=== PATIENT | male | born 1970 | race Caucasian/White ===

== ENCOUNTER 2021-07-16 13:17 | Emergency (ER) | payer OTHER ==
[~2021-07-16] VITALS: Ht 190.5 cm; Wt 122.5 kg
[2021-07-16] MEDS ORDERED: ELIQUIS5 M2 PO (14:33)
[2021-07-16] MEDS ORDERED: CARV25 PO (14:34)
[2021-07-16] MEDS ORDERED: LISI20 PO (14:34)
[2021-07-16] MEDS ORDERED: SPIR25 PO (14:35)
[2021-07-16] MEDS ORDERED: GABA800 PO (14:35)
[2021-07-16] MEDS ORDERED: Norco 10-325 T1 EACH PO (14:35)
[2021-07-16] MEDS ORDERED: AMLO10 PO (14:35)
[2021-07-16] MEDS ORDERED: CYCL10 PO (14:36)
[2021-07-16] MEDS ORDERED: TRAM50 PO (14:36)
[2021-07-16 14:44] LABS: BASOPHILS ABSOLUTE AUTO 0.04 K/mm3 (0.00-0.23); BASOPHILS PERCENT AUTO 1 % (0-2); EOSINOPHILS ABSOLUTE AUTO 0.05 K/mm3 (0.00-0.68); EOSINOPHILS PERCENT AUTO 1 % (0-6); Hematocrit 49.7 % (37.0-53.0); Hemoglobin 17.3 g/dL (13.5-17.5); IMMATURE GRAN ABSOLUTE AUTO 0.02 K/mm3 (0.00-0.10); IMMATURE GRAN PERCENT AUTO 0 % (0-1); LYMPHOCYTES ABSOLUTE AUTO 2.29 K/mm3 (0.84-5.20); LYMPHOCYTES PERCENT AUTO 31 % (21-46); MONOCYTES ABSOLUTE AUTO 0.76 K/mm3 (0.16-1.47); MONOCYTES PERCENT AUTO 10 % (4-13); Mean Corpuscular HGB 29.4 pg (26.0-34.0); Mean Corpuscular HGB Conc 34.8 g/dL (31.5-36.5); Mean Corpuscular Volume 85 fL (80-100); Mean Platelet Volume 11.7 fL (9.1-12.4); NEUTROPHILS ABSOLUTE AUTO 4.18 K/mm3 (1.96-9.15); NEUTROPHILS PERCENT AUTO 57 % (41-73); Platelet Count 272 K/mm3 (150-400); RDW Coefficient Variation 12.5 % (11.7-14.2); RDW Standard Deviation 38.7 fL (35.1-46.3); Red Blood Cell Count 5.88 M/mm3 (4.30-5.90); White Blood Cell Count 7.34 K/mm3 (4.00-11.30)
[2021-07-16 15:08] LABS: Alanine Aminotransfer (ALT/SGP 31 U/L (12-78); Albumin, Blood 4.2 g/dL (3.4-5.0); Albumin/Globulin Ratio 1.1 (0.8-1.8); Alk Phos 52 U/L (50-136); Anion Gap 9 mmol/L (6-16); Aspartate Aminotrans (AST/SGOT 22 U/L (12-37); Bilirubin, Total 1.4 mg/dL (0.1-1.0); Blood Urea Nitrogen 16 mg/dL (8-24); CO2, Blood 21 mmol/L (21-32); Calcium, Blood 9.4 mg/dL (8.5-10.1); Chloride, Blood 104 mmol/L (98-108); Creatinine, Blood 0.94 mg/dL (0.60-1.20); Globulin, Blood 3.9 g/dL (2.2-4.0); Glomerular Filtration Rate >60 (60-); Glucose, Blood 126 mg/dL (70-99); Potassium, Blood 4.6 mmol/L (3.5-5.5); Sodium, Blood 134 mmol/L (136-145); Total Protein, Blood 8.1 g/dL (6.4-8.2)
[2021-07-16] MEDS ORDERED: OXYC10TA19 PO (17:10)
[2021-07-16] MEDS ORDERED: HYDROCODONE-AC1 EAC7 PO (17:10)
== END 2021-07-16 17:55 | disposition home or self-care (01) ==
LOC: ER 13:17
PROVIDERS: Emergency Medicine; Physician Assistant
DX: I48.91 Unspecified atrial fibrillation (principal); R10.11 Right upper quadrant pain; I50.9 Heart failure, unspecified; Z79.899 Other long term (current) drug therapy
CPT/HCPCS: 36415; 71045; 80053; 83690; 83735; 84484; 85025; 93005; 93010; 96365; 96366; 96375; 96376; 99285-25; J1170; J2405

== ENCOUNTER 2021-07-29 09:06 | Day surgery (SDC) | payer OTHER ==
[~2021-07-29] VITALS: Ht 190.5 cm; Wt 120.3 kg
[~2021-07-29 09:06] MED LIST: AMLO10 PO; CARV25 PO; CYCL10 PO; ELIQUIS5 M2 PO; GABA800 PO; HYDROCODONE-AC1 EAC7 PO; LISI20 PO; Norco 10-325 T1 EACH PO; OXYC10TA19 PO; SPIR25 PO; TRAM50 PO
== END 2021-07-29 11:18 | disposition home or self-care (01) ==
LOC: ORSCSDS 09:06 → ORD 08-19 13:15
PROVIDERS: Student in an Organized Health Care Education/Training Program
PROC: 0DBE8ZX Excision of Large Intestine, Via Natural or Artificial Opening Endoscopic, Diagnostic (ICD-10-PCS; principal; 2021-07-29 10:30)
PROC: 0DBP8ZX Excision of Rectum, Via Natural or Artificial Opening Endoscopic, Diagnostic (ICD-10-PCS; principal; 2021-07-29 10:30)
PROC: 0DB78ZX Excision of Stomach, Pylorus, Via Natural or Artificial Opening Endoscopic, Diagnostic (ICD-10-PCS; principal; 2021-07-29 10:30)
PROC: 0DB48ZX Excision of Esophagogastric Junction, Via Natural or Artificial Opening Endoscopic, Diagnostic (ICD-10-PCS; principal; 2021-07-29 10:30)
PROC: 0DB98ZX Excision of Duodenum, Via Natural or Artificial Opening Endoscopic, Diagnostic (ICD-10-PCS; principal; 2021-07-29 10:30)
DX: R10.84 Generalized abdominal pain (principal); R11.2 Nausea with vomiting, unspecified; K62.1 Rectal polyp; K64.4 Residual hemorrhoidal skin tags; I12.9 Hypertensive chronic kidney disease with stage 1 through stage 4 chronic kidney disease, or unspecified chronic kidney disease; N18.30 Chronic kidney disease, stage 3 unspecified; I50.9 Heart failure, unspecified; I48.91 Unspecified atrial fibrillation; Z79.01 Long term (current) use of anticoagulants; Z79.899 Other long term (current) drug therapy; E66.9 Obesity, unspecified; Z68.33 Body mass index [BMI] 33.0-33.9, adult
CPT/HCPCS: 88305; 88342; J2250; J2405; J2704; J7120

== ENCOUNTER → 2021-09-22 | Outpatient (CLI) | payer OTHER ==
[2021-09-22 14:21] LABS: Free Thyroxine 0.95 ng/dL (0.70-1.60)
[2021-09-22 14:29] LABS: Thyroid Stimulating Hormone 1.11 uIU/mL (0.360-4.800)
== END | disposition home or self-care (01) ==
LOC: LAB SHORT 09:44 → LAB 09:44
PROVIDERS: Nurse Practitioner
DX: R68.89 Other general symptoms and signs (principal)
CPT/HCPCS: 84439; 84443

== ENCOUNTER 2021-11-03 09:08 | Emergency (ER) | payer OTHER ==
[~2021-11-03] VITALS: Ht 188 cm; Wt 122.5 kg
[~2021-11-03 09:08] MED LIST changes: -TRAM50 PO; +TRAMADOL HCL E200 MG PO
[2021-11-03 10:18] LABS: BASOPHILS ABSOLUTE AUTO 0.02 K/mm3 (0.00-0.23); BASOPHILS PERCENT AUTO 0 % (0-2); EOSINOPHILS ABSOLUTE AUTO 0.04 K/mm3 (0.00-0.68); EOSINOPHILS PERCENT AUTO 1 % (0-6); Hematocrit 46.5 % (37.0-53.0); Hemoglobin 15.8 g/dL (13.5-17.5); IMMATURE GRAN ABSOLUTE AUTO 0.01 K/mm3 (0.00-0.10); IMMATURE GRAN PERCENT AUTO 0 % (0-1); LYMPHOCYTES ABSOLUTE AUTO 0.87 K/mm3 (0.84-5.20); LYMPHOCYTES PERCENT AUTO 13 % (21-46); MONOCYTES ABSOLUTE AUTO 0.61 K/mm3 (0.16-1.47); MONOCYTES PERCENT AUTO 9 % (4-13); Mean Corpuscular HGB 30.2 pg (26.0-34.0); Mean Corpuscular Volume 89 fL (80-100); Mean Platelet Volume 11.7 fL (9.1-12.4); NEUTROPHILS ABSOLUTE AUTO 5.09 K/mm3 (1.96-9.15); NEUTROPHILS PERCENT AUTO 77 % (41-73); Platelet Count 133 K/mm3 (150-400); RDW Coefficient Variation 12.9 % (11.7-14.2); RDW Standard Deviation 42.2 fL (35.1-46.3); Red Blood Cell Count 5.24 M/mm3 (4.30-5.90); White Blood Cell Count 6.64 K/mm3 (4.00-11.30)
[2021-11-03 10:28] LABS: Albumin, Blood 3.4 g/dL (3.4-5.0); Albumin/Globulin Ratio 1.1 (0.8-1.8); Bun/Creatinine Ratio 14.7 (12.0-20.0); Calcium, Blood 8.4 mg/dL (8.5-10.1); Creatinine, Blood 1.09 mg/dL (0.60-1.20); Globulin, Blood 3.2 g/dL (2.2-4.0); Potassium, Blood 4.4 mmol/L (3.5-5.5); Total Protein, Blood 6.6 g/dL (6.4-8.2)
[2021-11-03] MEDS ORDERED: OXYC10TA19 PO (11:02)
[2021-11-03] MEDS ORDERED: ENTRESTO 24 MG1 EACH PO (11:03)
[2021-11-03] MEDS ORDERED: XOLIDO XP118 ML TOP (11:04)
== END 2021-11-03 11:20 | disposition home or self-care (01) ==
LOC: ER 09:08
PROVIDERS: Emergency Medicine
DX: U07.1 COVID-19 (principal); I48.91 Unspecified atrial fibrillation; K80.40 Calculus of bile duct with cholecystitis, unspecified, without obstruction; I11.0 Hypertensive heart disease with heart failure; I50.9 Heart failure, unspecified; Z79.899 Other long term (current) drug therapy; Z79.01 Long term (current) use of anticoagulants
CPT/HCPCS: 71045; 80053; 85025; 93005; 93010; 96374; 96375; 99285-25; A9270; J2405; M0222

== ENCOUNTER 2021-11-17 06:16 | Day surgery (SDC) | payer OTHER ==
[~2021-11-17] VITALS: Ht 190.5 cm; Wt 122.7 kg
[~2021-11-17 06:16] MED LIST changes: +ENTRESTO 24 MG1 EACH PO; +XOLIDO XP118 ML TOP
[2021-11-17] MEDS ORDERED: PROM25 PO (06:41)
[2021-11-17] MEDS ORDERED: ONDA4 PO (06:41)
[2021-11-17] MEDS ORDERED: METO10 PO (06:42)
--- NOTE | 2021-11-17 07:45 | NUR ---
PT BROUGHT BACK TO RECOVERY VIA RECLINER CHAIR, TR ON BAND ON RIGHT WRIST WITH AIR IN, ARM BOARD FOR SUPPORT. SITE APPEARS SOFT NON TENDER WITH NO BLEEDING OR OOZING NOTED. PT APPEARS DROWSY, OPENS EYES AND CONVERSES, THEN RETURNS TO REST WITH EYES CLOSED. PT ABLE TO TOLERATE PO WATER WITH NO DIFFICULTIES POST PROCEDURE. VSS. CALL LIGHT IN REACH. WILL CONTINUE TO MONITOR.
--- NOTE | 2021-11-17 08:59 | NUR ---
TR BAND HAS BEEN FULLY DEFLATED, REMAINS ON, SITE SOFT NON TENDER WITH NO BLEEDING OR OOZING. PT PROVIDED WITH MEAL TRAY, TOLERATES WITH NO ISSUES. VSS.
--- NOTE | 2021-11-17 09:38 | NUR ---
TR BAND REMOVED, RED CLOTH DOT APPLIED. ARM BOARD USED FOR SPLINT SUPPORT. SITE SOFT NON TENDER WITH NO BLEEDING OR OOZING NOTED. DENIES PAIN. GETS DRESSED WITH NO NEEDED ASSISTANCE, AMBULATES TO RESTROOM WITH STEADY GAIT. IV REMOVED FROM LAC WITH CATH INTACT, PRESSURE DRESSING APPLIED. AFIB ON COVER MAKER, WHICH IS NOT NEW. PT VERBALIZED UNDERSTANDING OF D/C INSTRUCTIONS, PAPERWORK PROVIDED IN FOLDER. ENCOURAGED TO FOLLOW UP SCHEDULED. NO ACUTE DISTRESS NOTED AT TIME OF DISCHARGE. TAKEN OUT TO MEET DAUGHTER IN W/C.
== END 2021-11-17 09:35 | disposition home or self-care (01) ==
LOC: MHTC 06:16
DX: I42.9 Cardiomyopathy, unspecified (principal); I48.11 Longstanding persistent atrial fibrillation; I13.0 Hypertensive heart and chronic kidney disease with heart failure and stage 1 through stage 4 chronic kidney disease, or unspecified chronic kidney disease; I50.22 Chronic systolic (congestive) heart failure; N18.30 Chronic kidney disease, stage 3 unspecified; Z79.01 Long term (current) use of anticoagulants; Z79.899 Other long term (current) drug therapy
CPT/HCPCS: 76937; 93454; 99152; A9270; C1769; C1887; C1894; J1644; J2250; J3010; J7030; J7040; Q9967

== ENCOUNTER 2022-03-03 19:17 | Emergency (ER) | payer OTHER ==
[~2022-03-03] VITALS: Ht 190.5 cm; Wt 122.5 kg
[~2022-03-03 19:17] MED LIST changes: +DILT180 PO; +METO10 PO; +ONDA4 PO; +PROM25 PO; +ZESTRIL40 M2 PO
[2022-03-03 20:05] LABS: BASOPHILS ABSOLUTE AUTO 0.06 K/mm3 (0.00-0.23); BASOPHILS PERCENT AUTO 1 % (0-2); EOSINOPHILS ABSOLUTE AUTO 0.15 K/mm3 (0.00-0.68); EOSINOPHILS PERCENT AUTO 3 % (0-6); Hematocrit 45.3 % (37.0-53.0); Hemoglobin 15.8 g/dL (13.5-17.5); IMMATURE GRAN PERCENT AUTO 0 % (0-1); LYMPHOCYTES PERCENT AUTO 46 % (21-46); MONOCYTES ABSOLUTE AUTO 0.71 K/mm3 (0.16-1.47); MONOCYTES PERCENT AUTO 14 % (4-13); Mean Corpuscular HGB 30.6 pg (26.0-34.0); Mean Corpuscular HGB Conc 34.9 g/dL (31.5-36.5); Mean Corpuscular Volume 88 fL (80-100); Mean Platelet Volume 11.7 fL (9.1-12.4); NEUTROPHILS ABSOLUTE AUTO 1.85 K/mm3 (1.96-9.15); NEUTROPHILS PERCENT AUTO 36 % (41-73); Platelet Count 185 K/mm3 (150-400); RDW Coefficient Variation 13.8 % (11.7-14.2); RDW Standard Deviation 44.8 fL (35.1-46.3); Red Blood Cell Count 5.16 M/mm3 (4.30-5.90); White Blood Cell Count 5.17 K/mm3 (4.00-11.30)
[2022-03-03 20:21] LABS: Bun/Creatinine Ratio 19.1 (12.0-20.0); Calcium, Blood 8.8 mg/dL (8.5-10.1); Creatinine, Blood 0.84 mg/dL (0.60-1.20); Potassium, Blood 4.4 mmol/L (3.5-5.5)
[2022-03-03 21:36] LABS: Source, Urine Clean Catch
[2022-03-03 21:38] LABS: Bilirubin, Urine Neg (Neg); Blood, Urine Neg (Neg); Glucose Qualitative, Urine Neg (Neg); Ketones, Urine Neg (Neg); Leukocyte Esterase, Urine Neg (Neg); Nitrite, Urine Neg (Neg); Protein, Urine 1+ (Neg); Urobilinogen, Urine NORM (Normal)
[2022-03-03 21:41] LABS: Appearance, Urine Clear (Clear); Color, Urine Yellow (P-Yellow)
== END 2022-03-03 23:50 | disposition home or self-care (01) ==
LOC: ER 19:17
PROVIDERS: Physician Assistant
DX: M54.50 Low back pain, unspecified (principal); G89.29 Other chronic pain; R10.9 Unspecified abdominal pain; I13.0 Hypertensive heart and chronic kidney disease with heart failure and stage 1 through stage 4 chronic kidney disease, or unspecified chronic kidney disease; I50.9 Heart failure, unspecified; N18.9 Chronic kidney disease, unspecified; I48.91 Unspecified atrial fibrillation; Z79.01 Long term (current) use of anticoagulants; Z79.899 Other long term (current) drug therapy
CPT/HCPCS: 36415; 74176; 80048; 85025; 96374; 96375; 96376; 99284-25; J1170; J1885; J2550

== ENCOUNTER 2022-03-07 12:40 | Inpatient (IN) | payer OTHER ==
[~2022-03-07] VITALS: Ht 190.5 cm; Wt 122.7 kg
[2022-03-07 13:16] LABS: BASOPHILS ABSOLUTE AUTO 0.01 K/mm3 (0.00-0.23); BASOPHILS PERCENT AUTO 0 % (0-2); EOSINOPHILS ABSOLUTE AUTO 0.03 K/mm3 (0.00-0.68); EOSINOPHILS PERCENT AUTO 0 % (0-6); Hematocrit 50.2 % (37.0-53.0); IMMATURE GRAN ABSOLUTE AUTO 0.03 K/mm3 (0.00-0.10); IMMATURE GRAN PERCENT AUTO 0 % (0-1); LYMPHOCYTES ABSOLUTE AUTO 1.51 K/mm3 (0.84-5.20); LYMPHOCYTES PERCENT AUTO 14 % (21-46); MONOCYTES ABSOLUTE AUTO 0.95 K/mm3 (0.16-1.47); MONOCYTES PERCENT AUTO 9 % (4-13); Mean Corpuscular HGB 29.7 pg (26.0-34.0); Mean Corpuscular HGB Conc 33.9 g/dL (31.5-36.5); Mean Corpuscular Volume 88 fL (80-100); Mean Platelet Volume 12.3 fL (9.1-12.4); NEUTROPHILS ABSOLUTE AUTO 8.44 K/mm3 (1.96-9.15); NEUTROPHILS PERCENT AUTO 77 % (41-73); Platelet Count 194 K/mm3 (150-400); RDW Coefficient Variation 14.1 % (11.7-14.2); RDW Standard Deviation 45.1 fL (35.1-46.3); Red Blood Cell Count 5.72 M/mm3 (4.30-5.90); White Blood Cell Count 10.97 K/mm3 (4.00-11.30)
[2022-03-07 14:50] LABS: Magnesium, Blood 1.9 mg/dL (1.6-2.4)
[2022-03-07 14:53] LABS: Thyroid Stimulating Hormone 0.466 uIU/mL (0.360-4.800)
[2022-03-07 14:59] LABS: Albumin, Blood 3.4 g/dL (3.4-5.0); Albumin/Globulin Ratio 1.1 (0.8-1.8); Bilirubin, Total 1.2 mg/dL (0.1-1.0); Bun/Creatinine Ratio 22.4 (12.0-20.0); Calcium, Blood 8.3 mg/dL (8.5-10.1); Creatinine, Blood 0.89 mg/dL (0.60-1.20); Globulin, Blood 3.1 g/dL (2.2-4.0); Potassium, Blood 5.9 mmol/L (3.5-5.5); Total Protein, Blood 6.5 g/dL (6.4-8.2)
[2022-03-07] MEDS ORDERED: BUPRENORPHIN-N1 EAC1 SL (15:02)
[2022-03-07] MEDS ORDERED: DILT180 PO (15:04)
[2022-03-07] MEDS ORDERED: BUSP5 PO (15:05)
[2022-03-08 03:53] LABS: BASOPHILS ABSOLUTE AUTO 0.04 K/mm3 (0.00-0.23); BASOPHILS PERCENT AUTO 0 % (0-2); EOSINOPHILS ABSOLUTE AUTO 0.12 K/mm3 (0.00-0.68); EOSINOPHILS PERCENT AUTO 1 % (0-6); Hematocrit 42.3 % (37.0-53.0); Hemoglobin 14.9 g/dL (13.5-17.5); IMMATURE GRAN ABSOLUTE AUTO 0.02 K/mm3 (0.00-0.10); IMMATURE GRAN PERCENT AUTO 0 % (0-1); LYMPHOCYTES PERCENT AUTO 19 % (21-46); MONOCYTES ABSOLUTE AUTO 1.13 K/mm3 (0.16-1.47); MONOCYTES PERCENT AUTO 13 % (4-13); Mean Corpuscular HGB 30.3 pg (26.0-34.0); Mean Corpuscular HGB Conc 35.2 g/dL (31.5-36.5); Mean Corpuscular Volume 86 fL (80-100); Mean Platelet Volume 11.8 fL (9.1-12.4); NEUTROPHILS ABSOLUTE AUTO 5.98 K/mm3 (1.96-9.15); NEUTROPHILS PERCENT AUTO 67 % (41-73); Platelet Count 145 K/mm3 (150-400); RDW Coefficient Variation 13.6 % (11.7-14.2); RDW Standard Deviation 43.4 fL (35.1-46.3); Red Blood Cell Count 4.92 M/mm3 (4.30-5.90); White Blood Cell Count 8.99 K/mm3 (4.00-11.30)
[2022-03-08 04:15] LABS: Albumin, Blood 3.3 g/dL (3.4-5.0); Bilirubin, Total 1.7 mg/dL (0.1-1.0); Bun/Creatinine Ratio 25.6 (12.0-20.0); Calcium, Blood 8.7 mg/dL (8.5-10.1); Creatinine, Blood 0.86 mg/dL (0.60-1.20); Globulin, Blood 3.2 g/dL (2.2-4.0); Total Protein, Blood 6.5 g/dL (6.4-8.2)
--- NOTE | 2022-03-08 05:31 | NUR ---
SALES CORRESPONDENCE CLERK SUMMARY PT IS ALERT AND COMUNICATING APPROPRIATELY. PT HAS C/O SEVERE PAIN ALL NIGHT REQUIRING MULTIPLE DOSES OF IV AND PO PAIN MEDICATION. PROVIDER EVALUATING THE PT'S SITUATION AND CHANGING ORDERS THROUGH OUT THE NIGHT W LITTLE TO NO SUCCESS IN PAIN CONTROL. TELE HAS SHOWN AFIB 105-150. AMIO GTT RUNNING ALL SHIFT PER EMAR. BP WNL AND STABLE. O2 SATS >90% ON RM AIR THIS SHIFT. PT AWAKE ALL NIGHT DUE TO PAIN. PT UNABLE TO VOID URINE DUE TO PAIN BUT IS REFUSING A CATHETR. WILL REPORT TO ONCOMING RN.
--- NOTE | 2022-03-08 09:27 | NUR ---
ASSUMED CARE OF PATIENT 07:15... PATIENT IS ALERT AND ORIENTED X 4. COMPLAINING OF PAIN TO L HIP, BACK, LEFT KNEE.. 9/10. HE HAD TO BE STRAIGHT CATHED DUE TO RETENSTION BY NOC THIS AM AT 0650, 500ML OUT S/P BLADDER SCAN OF 900. PT WAS GIVEN MULTIPLE DIFFERENT PAIN MEDICATIONS, DILAUDID, TORADOL, TYLENOL, AND AM MEDS ORDERED TO AID IN GETTING HIS PAIN LEVEL DOWN. DAUGHTER AT BEDSIDE GIVING REASURANCE AND AIDING IN CARE WHEN NEEDED. AMIODARONE GTT AT O.5MG/HR STILL 1700 UNLESS OTHERWISE DIRECTED GOING TO LEFT FA PIV WHICH IS INTACT AND WORKING AFFECTIVELY. HIS RHYTHM IS AFIB 105-136 THIS AM. BP STABLE AFEBRILE. PT DOES NOT HAVE A GOOD APPETITE DUE TO PAIN AT THIS TIME BUT DID TAKE HIS MEDICATION WITHOUT DIFFICULTY. WILL CONTINUE TO MONITOR PATIIENT AND ADDRESS NEEDS NEEDED.
--- NOTE | 2022-03-08 12:39 | NUR ---
Palliative Care Consult 51 year old male admitted the hospital for Afib. Pt's medical history and comorbidities include: Chronic Afib, Chronic Back Pain, Systolic CHF, Pulmonary HTN, Peyronie's Disease, and Spondylitis. Pt laying in bed upon arrival. Pt appears in significant pain and is constantly adjusting in bed. Pt's daughter Aileen at bedside. Offered active listening as daughter and Pt discusses Pt's chronic pain. Daughter reports the pain in the hip is new and the medications that we have provided have not been beneficial. She reports PCP has started Pt on Suboxone. Listened as daughter discusses the different therapies Pt has had in the past including pain clinic in [place], different narcotic regimens, and injections. She reports Pt has been denied by 2 different pain clinics in [place]. Dr Huizar in to examine Pt and review plan of care with Pt and daughter. Daughter reports Pt is about quality of life and not longevity. She inquires about hospice services. Educated on Pt not meeting criteria for hospice services at this time. She is opened to [facility] and states she has reached out to them a couple of times with no response. Continued therapeutic listening and answered questions. Will Fax referral to [facility]. Palliative Care will remain available.
--- NOTE | 2022-03-08 13:40 | NUR ---
NOON ASSESSMENT DR CASTRO IN ROOM WITH [facility] TALKING WITH PATIENT AND DAUGHTER OF PAIN TREATMENT PLAN. MEDICATIONS WITH CHANGED UP TO BETTER HELP MARIAMA CUMMINGS'S PAIN. PATIENT ALSO OFF AMIODARONE AND GETTING DIGOXIN PUSHES VIA ORDERS FROM DIRECTOR CARDIOVASCULAR DR PRADO. RATE IS STILL AFIB NOW 80-100'S GOAL IS TO NOT DROP BELOW 60 WHICH IS NOTED WITH TIRE CENTER MANAGER IN PCU WHO IS ALSO WATCHING THE RHYTHMS. PATIENT EATTING LITTLE BITES AT THIS TIME AND ABLE TO STILL TAKE HIS MEDICATION BY MOUTH WITHOUT DIFFICULTY. PAIN IS TILL 9/10 MAJORITY OF TIME IN LEFT HIP, LOWER BACK AND DOWN LEFT LEG. HE STATED THE PAIN IN HIS HIPS IS NEW FOR HIM. HE MOVES SELF IN BED AND TO BEDSIDE SITTING POSITION. STILL NOT URINATED WILL BLADDER SCAN AGAIN AND SEE IF HE NEEDS A STRAIGHT CATH AGAIN FOR RETENTION.
--- NOTE | 2022-03-08 14:31 | NUR ---
1400: UP WITH ASSIST TO VOID PATIENT UP TO BATHROOM DID CONTACT CLAUDIA TO GET TO BATHROOM WITH ONE PERSON STAND BY ASSIST. HE STATED HE FELT BETTER STANDING A BIT BUT WAS TOO WORN OUT TO STAND FOR TOO LONG. GOT PATIENT TO RIGHT SIDE SO PRONE ON BED WHEN BACK AFTER VOIDING 500MLS OF ARTUR URINE. MEDICATION GIVEN VIA ORAL ROUTE DIRECTED ALONG WITH FLEXERIL AND TYLENOL. aNOTHER DOSE OF DIGOXIN WAS GIVEN 0.25MG IV. cARDIAC RATE 103 RHYTHM STILL AFIB. WILL CONTINUE TO ASSESS PATIENT AND TREAT DIRECTED.
--- NOTE | 2022-03-08 18:13 | NUR ---
END OF SHIFT NOTE PT IS UP TO BATHROOM USING CALL LIGHT APPRORIATELY. PT VOIDING WITHOUT DIFFICULTY. PT HAVING NUMBNESS AND TINGLING TO LEFT LEG AND SPASMS TO LEFT LOWER BACK AND LEFT HIP. DID PRESSURE POINT THERAPY TO HIP FLEXORS AND APPLIED ICE TO BACK. ENCOURAGING RELAXING BREATHING TO HELP GET HIS HEART RATE DOWN. IT WAS HIGH 150 WHEN UP TO BATHROOM. NEXT MEDICATION TO BE GIVEN ABOUT 1999 THIS EVENING. CONCERN HE DOESN'T HAVE MED FOR BREAKTHROUGH PAIN. TRYING OTHER MODES OF THERAPY. WILL GIVE REPORT OFF TO NEXT SHIFT TO RESUME CARE.
--- NOTE | 2022-03-08 18:49 | NUR ---
ANXIETY: 1830.. PT HAIVNG INCREASE IN HEART RATE AND DISCOMFORT TO LEFT HIP AND BACK. ICE WAS USED TO HELP DECREASE PAIN. PATIENT RELAXED AND PULSE DOWN TO 118 WHEN DEEP BREATHING AND RELAXING. BUSPAR HAS A HALF LIFE OF 2-3 HRS WHICH HE RECEIVED ABOUT 1400. CALLED DR CASTRO CONCERNING ANXIETY MEDICATION. A LORAZAPAM WAS ORDERED FOR PO DOSE Q 6 HR PRN FOR ANXIETY. WAITING FOR PHARMACY TO APPROVE TO GIVE TO PATIENT. HE WAS INFORMED HE WILL GET MORE BUSPAR AT APPROX. 2000 TONIGHT. DAUGHTER IN FRUSTRATED HER FATHER IS STILL DEALING WITH DISCOMFORT AND IS NOT HAPPY ABOUT THE REGIMENT THAT IS BEING USED. WILL TRY ATIVAN PRN TO SEE IF THIS AIDES IN HIS COMFORT AND ANXIETY WITH THE OTHER MEDICATIONS HE WILL RECEIVE TONIGHT.
--- NOTE | 2022-03-09 06:32 | NUR ---
SHIFT SUMMARY PT A&O X4. COOPERATIVE WITH CARE AND RESPONDING APPROPRIATELY. PT HEART WAS SUSTAINING IN 1 TEENS'S - 130'S, INCREASING WITH EXERTION OR MOVEMENT INTO THE 150'S, AT TIMES 170'S. SBP ELEVATED. PT ALSO HAD 2 RUNS OF VTACH, 5 BEATS EACH. PROVIDER NOTIFIED. NEW ORDERS FOR LOPRESSOR PUSH X2. AFTER LOPRESSOR PUSH, SBP IMPROVED WELL HR. HR DECREASED TO 90'S. PT DENIES CHEST PAIN OR SOB. PT DENIES N/V, OR DIZZINESS. PT RESPONDING AND INTERACTING. PT REPORTED MILD CHEST PRESSURE, STATES EXPERIENCED BEFORE AND THAT THINKS POSSIBLY IT IS RELATED TO ANXIETY AND HIS PAIN. PT REPORTS SEVERE PAIN IN L LEG; REPOSIITIONING, ICE, STRETCHING AND MEDICATIONS PER EMAR PROVIDED TO HELP MANAGE PAIN. PT SLEPT ON AND OFF THROUGHOUT SHIFT. PT UP IN ROOM INDEPENDENTLY TO MOVE, STRETCH AND USE THE BATHROOM. PT HAS GOOD URINE OUTPUT, DENIES ANY CHANGES OR CONCERNS WITH VOIDING.
--- NOTE | 2022-03-09 09:29 | NUR ---
pt states that last night his pain and discomfort was worse than the night before. Now he is c/o terrible pain in his left leg, moving and stretching the leg while OOB leaning to the bed, or on the bed leaning to the side to relieve the pain. Medications were given at this time as ordered and also PRN meds for relief. Dr. Huizar was here following the pelvic xray and ultrasound of the LLE. MRI was ordered for the lumbar area. PT is asking if he can get into the shower.
--- NOTE | 2022-03-09 09:54 | NUR ---
Pt was able to get into the shower. His daughter is helping him. He declined any staff assistance. Towels/washcloths provided for him. IVs were covered.
--- NOTE | 2022-03-09 11:12 | NUR ---
Pt appears to be more comfortable after receiving medications and having a shower. He is cheerful, conversant, lying in bed quietly.
--- NOTE | 2022-03-09 11:49 | NUR ---
Call from treatment technician Deb that pt is in too much pain to lie flat for the MRI. Call to Dr. Molina and new order received for pain medication one time IV dose.
--- NOTE | 2022-03-09 12:23 | NUR ---
Call from packaging tech Deb that pt was able to lie down, and that the IV dilaudid "took the edge off" per the pt, but not able to tolerate 18 minutes in the MRI tube lying down. Call again to Dr. Huizar; left a voice message.
--- NOTE | 2022-03-09 12:46 | NUR ---
Pt is returned to room, lying on the bed now, left leg extended and in neutral position; right leg is flexed at the knee and hip, externally rotated, per pt's own self positioning for most relief.
--- NOTE | 2022-03-09 14:46 | NUR ---
Discussion with pt and his daughter; they were asking what the plan is right now. I explained that I have not heard back yet from the doctor, and I do not know what the plan is at this time, as the report of the USS of LLE is not available. Daughter is angry, states that she will not take the pt home at this time as his "heart is unstable, and we don't know if something acute is going on with his spine". Pt and daughter then became involved in an argument, with the pt telling the daughter to stop getting angry, that it would not help anything. He yelled at her, told her to get out and go smoke a cigarette. I asked if there is anything else going on, and the pt said that "we are broke. That's what is going on." The biggest concern that the pt and his daughter seem to have is his pain level, and the daughter is saying that she is afraid that there is something wrong with his spine.
--- NOTE | 2022-03-09 15:12 | NUR ---
Dr. Huizar here to see the patient, and the pt is absent from his room. Belongings are still in the room. Pt was seen by the conveyor line battery charger upstairs on medical floor waiting area. Pt was seen walking independently down the hallway, slowly, as if in pain. Now medical floor is calling PCU to say that the pt is upstairs, in emotional distress. Dr. Huizar and the conveyor line battery charger are going upstairs to talk with him.
--- NOTE | 2022-03-09 16:23 | NUR ---
Pt walked back to his room from medical floor, accompanied by Dr. Huizar who saw him in the hallway near the heart satin. Fax to the [facility] to request the pt's records. Pt was given torodal and dexamethasone as ordered by Dr. Huizar. Also given ice packs at this time for relief of his back pain. He is mobile around the room, but limping. Appears to be in good humor, carrying on conversations agreeably. He did say that he apologizes for his daughter's rude behaviour earlier. Staff acknowledged that the hospital is a stressful environment, and that it can be diffilcult emotionally for patients and families.
--- NOTE | 2022-03-09 18:36 | NUR ---
Pt lying in bed, left leg dangling over the side as he leans to the right with his right leg extended on the bed, in front of him. HOB is elevated at 45 degrees. He occasionally stands, walks around the room, stretching his muscles in his calf and hip for relief. Ambulatory with a slight limp when alone in the room, noted by remote camera montoring. He is lying on the side bench on his stomach, elbows propped on a pillow, with his left knee on the padded bench and his right foot and leg stretched out to the floor. Appears to be frequently repositioning, standing, sitting and stretching for pain relief.
--- NOTE | 2022-03-09 22:00 | NUR ---
UPDATE PT RECEIVED EDUCATION FROM CHARGE NURSE, MYSELF, AND ANOTHER RN ABOUT MD'S PLAN OF ACTION WITH HIS PAIN MANAGEMENT. THIS ALSO INCLUDED OTHER PAIN MANAGEMENT STRATEGIES INCLUDING GUIDED IMAGERY, HEAT/COOL THERAPY, AND STRETCHING/REPOSITIONING. PT AND HIS DAUGHTER EXPRESSED UDERSTANDING REGAURDING THIS ISSUES AND ALL QUESTIONS WERE ANSWERED.
--- NOTE | 2022-03-09 23:35 | NUR ---
UPDATE PT HAD FOOD DELIVERED TO HIS ROOM. PT IS ON A CARDIAC DIET AND INFORMED THAT THE DELIVERED FOOD IS NOT IN ACCORDANCE WITHI HIS DIET PLAN. PT STATED HE UNDERSTOOD, BUT STILL WANTED TO EAT HIS DELIVERED FOOD.
--- NOTE | 2022-03-10 05:07 | NUR ---
SHIFT SUMMARY PT IS A/Ox4 AND FOLLOWS DIRECTIONS FROM STAFF. PT'S CHIEF CONCERNS HAS BEEN PAIN MANAGMENT WELL HR CONTROL. PT'S HR SPIKES INTO THE 160'S WITH AMBULATION AND RECEIVED 5mg OF IV LOPRESSER DURING THE NIGHT. PT RESPONDED WELL TO THE MEDICATION AND HIS HR STABLIZED IN THE 120'S. PT HAS BEEN STARTED ON THE 2MG OF SUBOXONE AT MIDNIGHT FOR PAIN MANAGEMENT. BP AND RESPIRATORY STATUS HAVE BEEN STABLE T/O THE SHIFT. PT BEING SEEN BY CARDIOLOGY FOR RATE CONTROL AND IS RECEIVING A MORNING DOSE OF DIGOXIN. VSS, NADN T/O THE SHIFT
[2022-03-10 06:14] LABS: U Amphetamine Screen Not Detected; U Barbituate Screen Not Detected; U Benzodiazapine Screen DETECTED; U Buprenorphine Screen DETECTED; U Cannabinoids Screen Not Detected; U Cocaine Screen Not Detected; U Methadone Screen Not Detected; U Methamphetamine Screen Not Detected; U Opiates Screen DETECTED; U Oxycodone Screen Not Detected; U Phencyclidine Screen Not Detected; U Propoxyphene Screen Not Detected
--- NOTE | 2022-03-10 07:30 | NUR ---
The pt is very cheerful this morning, walking around the room without limping, and expressing gratitude and appreciation for all the food and medication which he got last night. Noted doing stretching in the room independently and walking around the room frequently. When asked, he cheerfully describes his various pains in various parts of his leg as "8/10", "not happy" "angry" and "pissed off". He is very talkative this morning and states that he feels right now that he could get the MRI done without any difficulty.
--- NOTE | 2022-03-10 07:48 | NUR ---
Lying in bed, ankles crossed, HOB elevated 40 degrees, eating kandis crackers.
--- NOTE | 2022-03-10 10:13 | NUR ---
The pt appears to be sleeping. Supine position in bed, with HOB elevated at 45 degrees. Atrial fibrillation at 94-99 bpm.
--- NOTE | 2022-03-10 10:52 | NUR ---
Pt is sleeping in the room; Daughter is in the room, lying on the bench next to him.
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
--- NOTE | 2022-03-10 13:29 | NUR ---
Call to Dr. Huizar to let her know that the MRI is complete and has been read by the radiologist. voice message was left on her phone.
--- NOTE | 2022-03-10 13:56 | NUR ---
Pt in room, standing next to the bed, stretching his right leg with it on the bed. On remote camera monitoring, it was observed that he lost his balance and fell backward out of sight. Immediately staff went into the room, and he was standing up, said that he was fine and that he just lost his balance. It was suggested that he sit down on the bench. He made a phone call and now is walking around the room, removing his telemetry patches. He is now out in the hallway, asking for adhesive remover to remove the sticky patches.
[2022-03-10] MEDS ORDERED: METO100ER PO (14:21)
[2022-03-10] MEDS ORDERED: JARDIANCE10 MG PO (14:21)
[2022-03-10] MEDS ORDERED: DIGOX250 MCG PO (14:21)
[2022-03-10] MEDS ORDERED: METPRE4DP PO (14:22)
[2022-03-10] MEDS ORDERED: FURO20 PO (16:07)
== END 2022-03-10 15:03 | disposition home or self-care (01) | DRG 309 ==
LOC: ER 12:40 → EDBEDREQSVC 18:28 → EDBEDREQ 18:28 → PCU 18:32
PROVIDERS: Family Medicine; Student in an Organized Health Care Education/Training Program; ADMIT Internal Medicine
DX: I48.19 Other persistent atrial fibrillation (principal); F11.20 Opioid dependence, uncomplicated; I50.22 Chronic systolic (congestive) heart failure; I13.0 Hypertensive heart and chronic kidney disease with heart failure and stage 1 through stage 4 chronic kidney disease, or unspecified chronic kidney disease; I42.0 Dilated cardiomyopathy; G89.29 Other chronic pain; F41.9 Anxiety disorder, unspecified; G62.9 Polyneuropathy, unspecified; M25.552 Pain in left hip; I27.20 Pulmonary hypertension, unspecified; N48.6 Induration penis plastica; M46.97 Unspecified inflammatory spondylopathy, lumbosacral region; E87.5 Hyperkalemia; M51.37 Other intervertebral disc degeneration, lumbosacral region; M47.897 Other spondylosis, lumbosacral region; N18.2 Chronic kidney disease, stage 2 (mild); Z98.890 Other specified postprocedural states; Z90.49 Acquired absence of other specified parts of digestive tract; Z79.01 Long term (current) use of anticoagulants; Z79.899 Other long term (current) drug therapy; Z98.61 Coronary angioplasty status
CPT/HCPCS: 36415; 72148; 72170; 80053; 82947; 83735; 83880; 84132; 84443; 84484; 85025; 93005; 93010; 93306; 93971; 94762; 96361; 96365; 96368; 96375; 96376; 99285-25; A9270; J0282; J0572; J0610; J1160; J1170; J1815; J1885; J2550; J3010; J7030; J7060; J7509; J7512; J7799

== ENCOUNTER 2022-03-17 15:01 | Emergency (ER) | payer OTHER ==
[~2022-03-17] VITALS: Ht 188 cm; Wt 122.5 kg
[~2022-03-17 15:01] MED LIST changes: +BUPRENORPHIN-N1 EAC1 SL; +BUSP5 PO; +DIGOX250 MCG PO; +FURO20 PO; +JARDIANCE10 MG PO; +METO100ER PO; +METPRE4DP PO
[2022-03-17 15:50] LABS: BASOPHILS ABSOLUTE AUTO 0.07 K/mm3 (0.00-0.23); BASOPHILS PERCENT AUTO 1 % (0-2); EOSINOPHILS ABSOLUTE AUTO 0.11 K/mm3 (0.00-0.68); EOSINOPHILS PERCENT AUTO 1 % (0-6); Hematocrit 47.4 % (37.0-53.0); Hemoglobin 16.3 g/dL (13.5-17.5); IMMATURE GRAN ABSOLUTE AUTO 0.08 K/mm3 (0.00-0.10); IMMATURE GRAN PERCENT AUTO 1 % (0-1); LYMPHOCYTES ABSOLUTE AUTO 2.11 K/mm3 (0.84-5.20); LYMPHOCYTES PERCENT AUTO 24 % (21-46); MONOCYTES ABSOLUTE AUTO 0.86 K/mm3 (0.16-1.47); MONOCYTES PERCENT AUTO 10 % (4-13); Mean Corpuscular HGB 30.4 pg (26.0-34.0); Mean Corpuscular HGB Conc 34.4 g/dL (31.5-36.5); Mean Corpuscular Volume 88 fL (80-100); Mean Platelet Volume 10.8 fL (9.1-12.4); NEUTROPHILS ABSOLUTE AUTO 5.42 K/mm3 (1.96-9.15); NEUTROPHILS PERCENT AUTO 63 % (41-73); Platelet Count 316 K/mm3 (150-400); RDW Coefficient Variation 13.4 % (11.7-14.2); RDW Standard Deviation 43.8 fL (35.1-46.3); Red Blood Cell Count 5.37 M/mm3 (4.30-5.90); White Blood Cell Count 8.65 K/mm3 (4.00-11.30)
[2022-03-17 16:00] LABS: Bilirubin, Total 0.5 mg/dL (0.1-1.0); Bun/Creatinine Ratio 31.2 (12.0-20.0); Calcium, Blood 7.3 mg/dL (8.5-10.1); Creatinine, Blood 0.77 mg/dL (0.60-1.20); Magnesium, Blood 1.9 mg/dL (1.6-2.4)
[2022-03-17 16:30] LABS: Digoxin (Lanoxin) 0.71 ug/mL (0.80-2.00)
== END 2022-03-17 20:35 | disposition home or self-care (01) ==
LOC: ER 15:01
PROVIDERS: Student in an Organized Health Care Education/Training Program
DX: R07.89 Other chest pain (principal); I48.91 Unspecified atrial fibrillation; M25.552 Pain in left hip; M54.50 Low back pain, unspecified; I13.0 Hypertensive heart and chronic kidney disease with heart failure and stage 1 through stage 4 chronic kidney disease, or unspecified chronic kidney disease; I50.9 Heart failure, unspecified; N18.2 Chronic kidney disease, stage 2 (mild); Z79.01 Long term (current) use of anticoagulants; Z79.899 Other long term (current) drug therapy
CPT/HCPCS: 71045; 73502; 80053; 80162; 83735; 83880; 84484; 85025; 93005; 93010; A9270; J1160; J1170; J1885; J2550